=== PATIENT | male | born 1950 | race Caucasian/White ===

== ENCOUNTER 2018-09-30 02:54 | Inpatient (IN) ==
--- NOTE | 2018-09-30 03:48 | PROVIDER DOCUMENTATION ---
HPI-Abdominal Pain/GI Problem - General Chief Complaint: Groin Pain Stated Complaint: PAIN/SWELLING IN (R) GROIN Time Seen by Provider: 09/30/18 03:34 Source: patient, family Allergies/Adverse Reactions: Patient Allergies Allergy/AdvReac Type Severity Reaction Status Date / Time No Known Allergies Allergy Verified 09/30/18 03:34 Home Medications: Home Medication List Medication Instructions Recorded Confirmed Last Taken Type Carvedilol C.r. [Coreg Cr] 12.5 mg PO BID 08/19/12 09/30/18 09/29/18 History Clopidogrel [Plavix] 75 mg PO QAM 08/19/12 09/30/18 09/29/18 History Donepezil [Aricept] 10 mg PO QHS 08/19/12 09/30/18 09/29/18 History ROSUVAstatin [Crestor] 10 mg PO QPM 08/19/12 09/30/18 09/29/18 History Levothyroxine [Synthroid] 50 microgm PO DAILY 03/01/16 09/30/18 09/29/18 History Amlodipine [Norvasc] 1 tab PO QAM 09/30/18 09/30/18 09/29/18 History Cholecalciferol (Vitamin D3) 1 cap PO QAM 09/30/18 09/30/18 09/29/18 History [Vitamin D3] Cyanocobalamin (Vitamin B-12) 1,000 mcg PO QAM 09/30/18 09/30/18 09/29/18 History [Vitamin B12] Losartan/Hydrochlorothiazide 1 tab PO QAM 09/30/18 09/30/18 09/29/18 History [Hyzaar 50-12.5 Tablet] Metformin HCl 1 tab PO QAM 09/30/18 09/30/18 09/29/18 History Polyethylene Glycol 3350 [Miralax] 17 gm PO QPM 09/30/18 09/30/18 09/29/18 History - History of Present Illness-ABD Nature of Presenting Problems: patient was up watching tv until about 1am and went to bed. He then noticed pain adn swelling in his right groin. It was painful so he called to his . He states it wasnt there earlier. He denies straining or lifting Abdominal Pain Onset Location: reports: RLQ Pain Radiation: reports: no radiation Quality of Pain: reports: aching Severity in ED: reports: moderate Onset/Duration: reports: 1 hour ago Timing: reports: still present Activities at Onset: reports: light activity Exposure to sick contacts?: No Modifying Factors: improves with: coughing Associated Symptoms: reports: denies symptoms Last BM: 24 hours ago Dark Stools Present?: reports: none noticed Rectal Bleeding: reports: none Rectal Pain: reports: none Emesis Description: reports: none Bruising or Bleeding Gums?: No Similar Symptoms Previously?: No Recently seen or treated by another doctor?: No Review of Systems - Adult - REVIEW OF SYSTEMS - ADULT Constitutional: reports: no symptoms reported Eyes: reports: no symptoms reported Ears, Nose, Mouth & Throat: reports: no symptoms reported Cardiovascular: reports: no symptoms reported Respiratory: reports: no symptoms reported Gastrointestinal: reports: see HPI Genitourinary: reports: see HPI Musculoskeletal: reports: no symptoms reported Integumentary: reports: no symptoms reported Neurological: reports: other (histry of multiple small strokes. no new symptoms recently) Psychiatric: reports: no symptoms reported Endocrine: reports: no symptoms reported Hematologic/Lymphatic: reports: no symptoms reported Allergic/Immunologic: reports: no symptoms reported Past History - Adult - PAST MEDICAL HISTORY-ADULT Review of Records: reports: Old Records Reviewed, Nursing Assessment Review Physical Exam-General - PHYSICAL EXAM-ADULT Initial Vital Signs Reviewed: Yes - CONSTITUTIONAL General Appearance: appears well, alert, no apparent distress - EYES Eyes: PERRL/EOMI, pink conjunctivae - HEAD, EARS, NOSE, MOUTH & THROAT HENMT: normocephalic/atraumatic, moist mucous membranes, normal ENT inspection, TMs normal, pharynx normal - NECK Neck: non-tender, full range of motion, supple. negative: carotid bruit - RESPIRATORY Respiratory: chest non-tender, lungs clear, normal breath sounds, no pleuratic chest pain, no respiratory distress - CARDIOVASCULAR Cardiovascular: normal peripheral pulses, regular rate, rhythm, no edema, no gallop, no JVD, no murmur - GASTROINTESTINAL (ABDOMEN) Abdominal Exam: normal bowel sounds, no organomegaly, no pulsatile mass - LYMPHATIC Lymphatic: no adenopathy, other (swelling and pain to palpationin right groin. not reducable) - SKIN Integumentary: normal color, normal turgor, warm/dry - NEUROLOGIC Neurologic: aphasia, motor weakness (left upper extremity). negative: facial droop, sensory deficit - PSYCHIATRIC Psych/Mental Status: normal mood/affect Progress - PLAN OF CARE/RESULTS Progress/Plan/Lab Results: Vital Signs - 8 hr 09/30/18 02:59 Temperature 98.4 F Pulse Rate 62 Respiratory Rate 16 Blood Pressure 175/100 O2 Sat by Pulse Oximetry 94 L Result Diagrams: 09/30/18 03:12 09/30/18 03:12 - REASSESSMENT Reassessment #1 Time Reassessed: 05:47 Status: unchanged Reassessment Comment: attempted reduction of right hernia with only partial reduction - EKG 1 Time of EKG reading by physician:: 04:10 EKG Read and Signed by:: Rm Carrillo EKG Interpretation (*Must complete 3 of following elements*): Abnormal Rate: 59 QRS: normal, PVC's LA Interval: normal ST Wave: non-specific ST changes - XRAY 1 XRAY Study: Chest (no infiltrates or masses. Heart size WNL. Diaphram Normal) - CONSULTS/PCP/HOSPITALIST Notification #1 *Consult/PCP/Hospitalist*: surgery, Dr Denney Time Discussed: 05:48 Reason/Comments: incarcerated inguinal hernia Consult Disposition: Will see in ED Departure - Departure Date of Disposition Decision: 09/30/18 Time of Disposition Decision: 07:00 DIAGNOSIS: Incarcerated inguinal hernia Disposition: ADMITTED INPATIENT 09 Certified Medical Emergency: Emergent Condition: Stable - Critical Care Note This patient required my direct & personal management of CC.: No Attestation - Physician/ JOI Attestation Patient care was provided by Advanced Practice Provider:: No The physician spent face to face time with patient:: Yes Advanced Practice Provider documentation review:: Supervising physician onsite and consulted in the evaluation and care of this patient. The physician did have a face to face encounter with the patient.
[2018-09-30] MEDS ORDERED: NS 1,000 ML IV ONE (03:52)
[2018-09-30 04:03] LABS: BASO# 0.02 X1000 (0.0-0.2); BASO% 0.3 % (0.0-0.8); EOS# 0.05 X1000 (0.0-0.7); EOS% 0.6 % (0.0-10.0); HEMATOCRIT 49.9 % (42.0-52.0); HEMOGLOBIN 17.4 g/dL (14.0-18.0); LYMPH# 1.91 X1000 (1.2-3.4); LYMPH% 24.7 % (20.5-51.1); MCH 31.9 PG (27-31); MCHC 34.9 g/dL (33-37); MCV 91.6 FL (81-99); MONO# 0.83 X1000 (0.11-0.59); MONO% 10.8 % (1.7-9.3); NEUT# 4.91 X1000 (1.4-6.5); NEUT% 63.6 % (42.2-75.2); PLT 154 X1000 (130-400); RBC 5.45 XMIL (4.7-6.1); RDW 12.1 % (11.5-14.5); WBC 7.72 X1000 (4.8-10.8)
[2018-09-30 04:24] LABS: AGAP 13; ALB/GLOB RATIO 1.3; ALBUMIN 4.4 g/dL (3.5-5.0); ALKALINE PHOSPHATASE 61 U/L (32-122); BUN 16 mg/dL (8-22); CALCIUM 10.1 mg/dL (8.8-10.2); CHLORIDE 101 mmol/L (98-107); COSMO 285; CREATININE 1.1 mg/dL (0.7-1.2); ESTIMATED GFR > 60; GLUCOSE 112 mg/dL (70-104); GOT 12 U/L (10-34); GPT 8 U/L (10-44); SODIUM 142 mmol/L (136-145); TCO2 28 mmol/L (25-35); TOTAL BILIRUBIN 1.05 mg/dL (0.20-1.00); TOTAL PROTEIN 7.8 g/dL (6.3-8.3)
[2018-09-30 04:31] LABS: INR 0.99; PROTIME 13.9 Seconds (11.0-16.0)
[2018-09-30 04:32] LABS: PTT 30.6 Seconds (22.3-41.8)
[2018-09-30] MEDS ORDERED: KEFZOL 1 GM/D5W 1 GM/50 ML IVPB IV ONE (07:12)
--- NOTE | 2018-09-30 07:33 | HISTORY AND PHYSICAL ---
CHIEF COMPLAINT: Groin pain. HISTORY OF PRESENT ILLNESS: A 67-year-old gentleman who awakened during the night with groin pain. He was noticed to have a bulge in his right groin that would not go away. He then presented the emergency department where he is discovered to have an incarcerated right inguinal hernia. He has bilateral inguinal hernias. The left side disease reducible. Mr. Mcnally's history is one of vascular dementia. He also has sleep apnea for which he takes CPAP. He has mini strokes. He has a history of hypertension, hypothyroidism and diabetes mellitus. SOCIAL HISTORY: He is and has an attentive . There is no tobacco usage. I think his primary care physician is Dr. Mcclure. FAMILY HISTORY: Pertinent for sleep apnea in mother. MEDICATIONS: 1. Fexofenadine 180 mg daily. 2. Actos. 3. Coreg 12.5 mg daily. 4. Plavix 75 mg daily. 5. Donepezil 10 mg daily. 6. Lasix 20 mg daily. 7. Levothyroxine 50 mg daily. 8. 9. Potassium chloride ER 10 mEq daily. 10. Vitamin B12 daily. 11. Hyzaar 50/12.5 mg daily. 12. Avandamet 4/500 daily. Aspirin daily. 13. Losartan daily. 14. Allopurinol 300 mg daily. 15. Crestor 10 mg daily. ALLERGIES: No known drug allergies. REVIEW OF SYSTEMS: Pertinent for some mild weight change, cognitive decline. He does take CPAP. No heart issues or chest pain. No trouble with alimentation or urination. PHYSICAL EXAMINATION: VITAL SIGNS: He is afebrile. Heart rate 66, blood pressure 153/86. NECK: There is no cervical adenopathy. LUNGS: Clear. HEART: Regular rate and rhythm. ABDOMEN: Soft. He has bilateral inguinal hernia. The left side is reducible. The right side is not reducible and is tender to palpation. No peripheral edema. He is awake and alert. LABORATORY DATA: White count 7700, hemoglobin 17.4, hematocrit 49.9. Chemistry is okay. ASSESSMENT: Bilateral inguinal hernia with the right side being incarcerated. PLAN: The plan is operative intervention to repair his hernia, especially the incarcerated right inguinal hernia. cc: Oleksandr Denney MD [facility]
--- NOTE | 2018-09-30 08:41 | Diag Imaging Result Doc PS360 ---
EXAM: CHEST-2 VIEWS INDICATION: abdominal pain TECHNIQUE: 2 views COMPARISON: 08/19/2012 FINDINGS: There is evidence of prior granulomatous disease, stable. The lungs are grossly clear. There is no discrete pleural fluid collection or pneumothorax. The cardiomediastinal silhouette and central vasculature are grossly unremarkable. IMPRESSION: No evidence of acute pathology by plain radiograph. Electronically signed by Arley Turner 09/30/2018 8:38 AM
[2018-09-30] MEDS ORDERED: PLAVIX PO SCH (09:00)
[2018-09-30] MEDS ORDERED: QUELICIN (DOSE) ONE (09:12)
[2018-09-30] MEDS ORDERED: ZEMURON ONE (09:12)
[2018-09-30] MEDS ORDERED: XYLOCAINE-MPF 2% ONE (09:12)
[2018-09-30] MEDS ORDERED: FENTANYL ONE (09:12)
[2018-09-30] MEDS ORDERED: DIPRIVAN 1% ONE (09:12)
[2018-09-30] MEDS ORDERED: SENSORCAINE-MPF 0.5%/EPI 1:200,000 ONE (09:17)
[2018-09-30] MEDS ORDERED: KEFZOL 1 GM/D5W 1 GM/50 ML IVPB ONE (09:41)
--- NOTE | 2018-09-30 09:53 | Diag Imaging Result Doc PS360 ---
EXAM: CT ABD/PELVIS W/IV CONT ONLY INDICATION: incarcerated inguinal hernia TECHNIQUE: This exam was performed using automated exposure control, adjustment of mA or kV according to patient size, and/or use of iterative reconstruction technique. COMPARISON: None. FINDINGS: The liver, gallbladder, spleen, pancreas, and adrenal glands are essentially unremarkable. There are several simple cysts associated with both kidneys. There is a nonobstructing intrarenal stone on the right. There is no hydronephrosis. The kidneys are unremarkable, otherwise. The urinary bladder is unremarkable. There is uncomplicated diverticulosis coli. There are bilateral large inguinal hernias. The hernia on the left contains a loop of the sigmoid colon that extends into the scrotum. It does not appear to be causing obstruction or ischemia. The large right inguinal hernia contains the cecum and terminal ileum, which extends into the scrotum. There is wall thickening involving the herniated colon at the base of the hernial sac and also involving the proximal ascending colon just distal to the hernia. This is suspicious for incarceration/ischemia. There is a small amount of free fluid and stranding at the periphery of these thickened segments of colon. The remainder of the GI tract is grossly unremarkable. There is no free abdominal gas appreciated. There are degenerative changes involving the lumbar spine. The bony structures are intact. IMPRESSION: 1.Bilateral large inguinal hernias as described above containing loops of colon with findings on the right concerning for incarceration/ischemia involving the herniated cecum and proximal ascending colon. 2.Other incidental/nonacute findings detailed above. Electronically signed by Arley Turner 09/30/2018 9:51 AM
[2018-09-30 10:19] LABS: URINE SOURCE CATH
[2018-09-30 10:30] LABS: BILIRUBIN URINE NEGATIVE (NEGATIVE); BLOOD URINE NEGATIVE (NEGATIVE); COLOR STRAW; GLUCOSE URINE NEGATIVE (NEGATIVE); KETONE URINE NEGATIVE (NEGATIVE); LEUKOCYTES URINE NEGATIVE (NEGATIVE); NITRITE URINE NEGATIVE (NEGATIVE); PROTEIN URINE NEGATIVE (NEGATIVE); TURBIDITY URINE CLEAR (CLEAR); UROBILINOGEN URINE NORMAL (NORMAL)
[2018-09-30 10:31] LABS: UR EPITHELIAL CELLS <10 /HPF (<10); URINE BACTERIA NEGATIVE /HPF; URINE RBC <10 /HPF (<10); URINE WBC <10 /HPF (<10)
[2018-09-30] MEDS ORDERED: ROBINUL ONE ×2 (10:40→11:21)
[2018-09-30] MEDS ORDERED: DECADRON ONE (10:43)
[2018-09-30] MEDS ORDERED: ZOFRAN ONE (10:43)
[2018-09-30] MEDS ORDERED: KEFZOL ONE (11:16)
[2018-09-30] MEDS ORDERED: NEOSTIGMINE ONE (11:23)
[2018-09-30] MEDS ORDERED: NORCO-10 PO ONE (12:32)
[2018-09-30] MEDS: GLUCOPHAGE PO SCH (14:21)
[2018-09-30] MEDS: VITAMIN B-12 PO SCH (14:22)
[2018-09-30] MEDS: COREG PO SCH ×2 (14:22→23:51)
[2018-09-30] MEDS: SYNTHROID PO SCH (14:23)
[2018-09-30] MEDS: VITAMIN D PO SCH (14:23)
[2018-09-30] MEDS: HYZAAR 50/12.5 MG PO SCH (14:30)
[2018-09-30] MEDS: NORVASC PO SCH (14:31)
--- NOTE | 2018-09-30 15:36 | OPERATIVE NOTE ---
PROCEDURE DATE: 09/30/2018 PROCEDURE: Open repair, Alberto's ligament technique, bilateral inguinal hernia. SURGEON: Oleksandr Denney MD. SUPERVISOR BRAKE REPAIR: Jarred. PREOPERATIVE DIAGNOSIS: Bilateral inguinal hernia with an incarcerated right inguinal hernia. POSTOPERATIVE DIAGNOSIS: Bilateral inguinal hernia with an incarcerated right inguinal hernia. DESCRIPTION OF PROCEDURE: Satisfactory general endotracheal anesthesia was received, the abdomen was prepped and draped in a sterile fashion. An Ioban drape used. Prophylactic Kefzol was given. As mentioned, we were able to reduce the incarcerated right inguinal hernia after the patient was anesthetized. We marked the Ioban Diovan and anesthetized the skin with 0.5 Marcaine with epinephrine and then incised the skin in an oblique fashion. Dissection was carried through the subcutaneous tissue through Joie's fascia to the external oblique aponeurosis. We injected local underneath the external oblique aponeurosis and incised it through the external ring. We then mobilized the cord structures, surrounded them with a Jose Miguel drain. We then dissected a large lipoma off the lateral aspect of the cord, and the hernia sac was dissected off the anteromedial aspect of the cord. After we got it back proximally, we opened the hernia sac to be certain that there was no contents within it. We then ligated the neck of the hernia sac with a 2- 0 silk pursestring stitch. We also ligated the neck of the lipoma as well. We excised the lipoma as well as the hernia sac. I chose not to use mesh because of the patient's incarceration. We then made a relaxing incision. I opened the inguinal floor, exposed Alberto's ligament, used 0 Prolene stitches from Alberto's ligament to the shelving edge. We then transitioned to the inguinal ligament and continued closure of inguinal floor using the 0 Prolene stitches until we reached the internal ring which would admit a finger tip. We then returned the cord to the inguinal canal and closed the external oblique aponeurosis with interrupted 3-0 Polysorb, once again, injected with action 0.5 Marcaine underneath it. We irrigated with Kefzol-impregnated saline placed 3-0 Polysorb in the subcutaneous tissue. We then turned our attention the left-side and did exactly the same procedure on the left as we did on the right with the same findings, except the right side was not incarcerated. After completing the left side as well, we once again, injected 0.5 Marcaine with epinephrine and then closed the skin with 4 Polysorb subcuticular stitches on both sides. Telfa and sterile Op-Sites were applied. He tolerated the procedure satisfactorily and was sent to the recovery room in satisfactory condition. cc: Oleksandr Denney MD
--- NOTE | 2018-09-30 17:02 | GENERAL SURGERY PROGRESS NOTE ---
DATE: 09/30/2018 It is 2 o'clock in the afternoon. He is postop bilateral inguinal hernia repair for incarceration. He is awake and alert and seemingly doing okay. Denies any significant pain. Denies any nausea. We will allow to have some liquids. cc: Oleksandr Denney MD
[2018-09-30] MEDS: KEFZOL 1 GM/D5W 1 GM/50 ML IVPB IV SCH ×2 (17:48→23:52)
[2018-09-30] MEDS: CRESTOR PO SCH (23:51)
[2018-09-30] MEDS: PERIDEX MT SCH (23:51)
[2018-09-30] MEDS: ARICEPT PO SCH (23:51)
[2018-09-30] MEDS: MIRALAX PO SCH (23:52)
[2018-10-01] MEDS: KEFZOL 1 GM/D5W 1 GM/50 ML IVPB IV SCH ×3 (00:16→17:07)
[2018-10-01] MEDS: DILAUDID IV PRN ×2 (01:18→10:14)
[2018-10-01] MEDS: ZOFRAN IV PRN ×2 (01:18→10:11)
--- NOTE | 2018-10-01 07:53 | GENERAL SURGERY PROGRESS NOTE ---
DATE: 10/01/2018 Mr. Mcnally is doing generally well this morning. He is awake and alert, taking liquids. His wounds look fine. He is afebrile, heart rate 57, blood pressure 145/88. He is awake and alert. Plan is to remove his Fuller today. We will see how he does with his liquids today and possibly discharge him later today if he continues well. cc: Oleksandr Denney MD
[2018-10-01] MEDS: HYZAAR 50/12.5 MG PO SCH (09:22)
[2018-10-01] MEDS: NORVASC PO SCH (09:22)
[2018-10-01] MEDS: SYNTHROID PO SCH (09:22)
[2018-10-01] MEDS: COREG PO SCH ×2 (09:22→21:51)
[2018-10-01] MEDS: VITAMIN D PO SCH (09:22)
[2018-10-01] MEDS: PERIDEX MT SCH ×2 (09:22→22:14)
[2018-10-01] MEDS: VITAMIN B-12 PO SCH (09:22)
[2018-10-01] MEDS: ARICEPT PO SCH (22:14)
[2018-10-01] MEDS: CRESTOR PO SCH (22:14)
[2018-10-01] MEDS: MIRALAX PO SCH (22:14)
[2018-10-02] MEDS: KEFZOL 1 GM/D5W 1 GM/50 ML IVPB IV SCH ×2 (03:08→09:37)
[2018-10-02 07:33] VITALS: BP 142/72
[2018-10-02] MEDS: VITAMIN D PO SCH (09:37)
[2018-10-02] MEDS: NORVASC PO SCH (09:37)
[2018-10-02] MEDS: VITAMIN B-12 PO SCH (09:37)
[2018-10-02] MEDS: PERIDEX MT SCH (09:38)
[2018-10-02] MEDS: SYNTHROID PO SCH (09:38)
[2018-10-02] MEDS: DILAUDID IV PRN (09:38)
[2018-10-02] MEDS: COREG PO SCH (09:38)
[2018-10-02] MEDS: HYZAAR 50/12.5 MG PO SCH (09:38)
[2018-10-02] MEDS: GLUCOPHAGE PO SCH (09:43)
--- NOTE | 2018-10-02 10:11 | GENERAL SURGERY PROGRESS NOTE ---
DATE: 10/02/2018 SUBJECTIVE: Mr. Mcnally is now 2 days after is repair of an incarcerated right inguinal hernia and a regular left inguinal hernia. He is sitting up today. He has taken p.o. intake satisfactorily. He has urinated. OBJECTIVE: His bandages are dry. Afebrile. Hemodynamics are good. PLAN: The plan is to discharge him. He is to keep his bandages on for 2 more days. We discussed activity and wound care. He will return to see me in the office in a week. cc: Oleksandr Denney MD
--- NOTE | 2018-10-02 10:52 | EKG Report ---
Test Performed on : 09/30/2018 04:02:11 AM Test Reason : ED. No order in [place] Blood Pressure : / mmHG Vent. Rate : 059 BPM Atrial Rate : 059 BPM P-R Int : 150 ms QRS Dur : 096 ms QT Int : 466 ms P-R-T Axes : 018 -21 062 degrees QTc Int : 461 ms Sinus bradycardia. with premature atrial complexes. with aberrant conduction. Nonspecific ST and T wave abnormality Abnormal ECG When compared with ECG of 19-AUG-2012 14:33, aberrant conduction. is now present Nonspecific T wave abnormality now evident in Inferior leads T wave inversion no longer evident in Lateral leads Unconfirmed Result
== END 2018-10-02 11:10 | disposition home or self-care (01) | DRG 352 ==
LOC: ED 02:54 → 4N 07:43
PROVIDERS: ADMIT Surgery; ATTEND Surgery
CPT/HCPCS: 71020; 71046; 74177; 80053; 81001; 82948; 85025; 85610; 85730; 88302; 88304; 93005; 94760; 94761; 94799; 99285; A9270; J0330; J0690; J1100; J1170; J2405; J3010; J7030; Q9967; XXXXX